=== PATIENT | female | born 1995 | race Caucasian/White ===

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

== ENCOUNTER 2017-02-03 11:35 | Emergency (ER) | payer OTHER ==
[2017-02-03 12:28] LABS: % IMMATURE GRANULYOCYTES 0.4 % (0.0-1.1); ABSOLUTE IMMATURE GRANULOCYTES 0.04 10^3/uL (0.00-0.10); ADD DIFF? NO; ADD MORPH? NO; ADD SCAN? NO; ATYPICAL LYMPHOCYTE FLAG 0 (0-99); FRAGMENT RBC FLAG 0 (0-99); HEMATOCRIT 41.1 % (38.0-47.0); HEMOGLOBIN 14.4 g/dL (12.6-16.3); LEFT SHIFT FLG 30 (0-99); LIPEMIA HEMOLYSIS FLAG 90 (0-99); MEAN CELL HEMOGLOBIN 30.3 pg (27.9-34.1); MEAN CELL VOLUME 86.3 fL (81.5-99.8); MEAN PLATELET VOLUME 10.2 fL (8.7-11.7); PLATELET CLUMPS FLAG 0 (0-99); PLATELET COUNT 193 10^3/uL (150-400); RED BLOOD CELL COUNT 4.76 10^6/uL (4.18-5.33); RED CELL DISTRIBUTION WIDTH 12.5 % (11.5-15.2)
[2017-02-03] MEDS ORDERED: NS 1,000 ML IV ONE (12:28)
--- NOTE | 2017-02-03 12:28 | EDPHY ---
H & P Stated Complaint: abdominal pain radiating to bilater low back Time Seen by Provider: 02/03/17 12:10 HPI/ROS: CHIEF COMPLAINT: Abdominal pain, back pain x4 days HISTORY OF PRESENT ILLNESS: 21-year-old immunocompetent female no history of abdominal surgeries complaining of 4 days of nausea, vomiting, diarrhea, lower abdominal pain, fever, chills, myalgias, with development of right flank pain in the past 24 hours . normal urinary habits . Seen at [facility] yesterday. No URI symptoms. No cough. No sore throat. No otalgia. No chest pain or dyspnea.no melena or hematochezia. No untreated water sources. No international travel. REVIEW OF SYSTEMS: A ten point review of systems was performed and is negative with the exception of the items mentioned in the HPI PAST MEDICAL & SURGICAL HISTORY: No history of abdominal surgeries. SOCIAL HISTORY: Student nonsmoker PHYSICAL EXAM (Prior to examination, patient consented to physical exam, hands were washed and my usual and customary physical exam procedures followed) 1) GENERAL: Well-developed, well-nourished, alert and oriented. Appears to be in no acute distress. 2) HEAD: Normocephalic, atraumatic 3) HEENT: Pupils equal, round, reactive to light bilaterally. Sclera anicteric. Nasopharynx, oropharynx, clear, no lesions. Dry mucous membranes no tonsillar enlargement or exudate 4) NECK: Full range of motion, no meningeal signs. 5) LUNGS: Clear auscultation bilaterally, no wheezes, no rhonchi, no retractions. 6) HEART: Regular rate and rhythm, no murmur, no heave, no gallop. 7) ABDOMEN: No guarding, tender to palpation bilateral lower quadrants, negative Soni's, negative peritoneal sign, 8) MUSCULOSKELETAL: Moving all extremities, no focal areas of tenderness, no obvious trauma. No peripheral edema or discoloration. 9) BACK: No CVA tenderness, no midline vertebral tenderness, no fluctuance, no step-off, no obvious trauma, no visual or palpable abnormality. 10) SKIN: No rash, no petechiae. 11) Psychiatric: Patient is oriented X 3, there is no agitation. DIFFERENTIAL DIAGNOSIS: My differential diagnosis includes, but is not limited to, acute appendicitis, acute pyelonephritis, acute cholecystitis, bowel obstruction, acute pancreatitis, ovarian torsion, ectopic , gastritis and urinary tract infection. The patient understands that this diagnosis is provisional and can never be 100% accurate. This is a partial list of diagnoses considered. These considerations are based on history, physical exam, past history and reassessment. - Personal History LMP (Females 10-55): Over 28 Days Ago Current Tetanus Diphtheria and Acellular Pertussis (TDAP): Yes Tetanus Vaccine Date: <10 years - Medical/Surgical History Hx Asthma: No Hx Chronic Respiratory Disease: No Hx Diabetes: No Hx Cardiac Disease: No Hx Renal Disease: No Hx Cirrhosis: No Hx Alcoholism: No Hx HIV/AIDS: No Hx Splenectomy or Spleen Trauma: No Other PMH: denies - Social History Smoking Status: Never smoked Constitutional: Initial Vital Signs Temperature (C) 36.5 C 02/03/17 11:41 Heart Rate 119 H 02/03/17 11:41 Respiratory Rate 16 02/03/17 11:41 Blood Pressure 116/84 H 02/03/17 11:41 O2 Sat (%) 95 02/03/17 11:41 O2 Delivery Mode Room Air Allergies/Adverse Reactions: Penicillins Allergy (Severe, Verified 06/22/16 20:26) Anaphylaxis Home Medications: Medication Instructions Recorded Control 02/03/17 Ondansetron Odt [Zofran Odt] 4 mg PO Q4PRN PRN #10 tab 02/03/17 Medical Decision Making - Diagnostics Imaging Results: Imaging Impressions Abdomen Ultrasound 02/03/17 12:25 Impression: Nonvisualization of the appendix with no secondary evidence of appendicitis. Findings discussed with Saundra Urias 02/03/2017 at 13:37. Pelvic/Renal Ultrasound 02/03/17 12:25 Impression: Normal pelvic ultrasound. Findings discussed with Saundra Urias 02/03/2017 at 13:37. Images reviewed myself ED Course/Re-evaluation: 2:10 p.m..: Re-evaluation, discussed her ultrasound results showing normal ovarian flow, nonvisualized appendix. I re-examined her and she has no guarding no rebound, no McBurney's point pain. States that she is feeling improvement after IV hydration. She is hungry. Discussed options with the patient. Discussed her urinalysis showing multiple epithelial cells, doubt cystitis or pyelonephritis. The patient has spoken with her mother via telephone. At this time she has been informed that acute appendicitis is not fully ruled out however given her current clinical presentation I think that this is less than likely. Discussed option of CT imaging now or recheck in 12 hours. She prefers recheck in 12 hours. I believe her to have decision-making capacity.Care of patient under supervision of secondary supervising physician Dr Savage . - Data Points Laboratory Results: Laboratory Results 02/03/17 12:15 02/03/17 12:15 02/03/17 02/03/17 02/03/17 12:35 12:15 12:15 WBC RBC Hgb Hct MCV MCH MCHC RDW Plt Count MPV Neut % (Auto) Lymph % (Auto) [place] % (Auto) Eos % (Auto) Baso % (Auto) Nucleat RBC Rel Count Absolute Neuts (auto) Absolute Lymphs (auto) Absolute Monos (auto) Absolute Eos (auto) Absolute Basos (auto) Absolute Nucleated RBC Immature Gran % Immature Gran # Sodium 139 mEq/L mEq/L (134-144) Potassium 4.0 mEq/L mEq/L (3.5-5.2) Chloride 103 mEq/L mEq/L (97-110) Carbon Dioxide 23 mEq/l mEq/l (22-31) Anion Gap 13 mEq/L mEq/L (8-16) BUN 9 mg/dL mg/dL (7-23) Creatinine 0.8 mg/dL mg/dL (0.6-1.0) Estimated GFR > 60 Glucose 95 mg/dL mg/dL (70-100) Calcium 9.2 mg/dL mg/dL (8.5-10.4) Total Bilirubin 0.4 mg/dL mg/dL (0.1-1.4) Conjugated Bilirubin 0.1 mg/dL mg/dL (0.0-0.5) Unconjugated Bilirubin 0.3 mg/dL mg/dL (0.0-1.1) AST 22 IU/L IU/L (14-46) ALT 25 IU/L IU/L (9-52) Alkaline Phosphatase 70 IU/L IU/L (38-126) Total Protein 6.7 g/dL g/dL (6.3-8.2) Albumin 3.3 g/dL L g/dL (3.5-5.0) Lipase 46 IU/L IU/L (23-300) Beta HCG, Qual NEGATIVE Urine Color JAIME Urine Appearance HAZY Urine pH 5.0 (5.0-7.5) Ur Specific [place] 1.030 (1.002-1.030) Urine Protein 1+ H (NEGATIVE) Urine Ketones 2+ H (NEGATIVE) Urine Blood NEGATIVE (NEGATIVE) Urine Nitrate NEGATIVE (NEGATIVE) Urine Bilirubin NEGATIVE (NEGATIVE) Urine Urobilinogen NEGATIVE EU EU (0.2-1.0) Ur Leukocyte Esterase NEGATIVE (NEGATIVE) Urine RBC 1-3 /hpf /hpf (0-3) Urine WBC 15-25 /hpf H /hpf (0-3) Ur Epithelial Cells 3+ /lpf H /lpf (NONE-1+) Urine Bacteria 1+ /hpf H /hpf (NONE SEEN) Urine Mucus 2+ /lpf H /lpf (NONE-1+) Urine Glucose NEGATIVE (NEGATIVE) 02/03/17 12:15 WBC 11.04 10^3/uL H 10^3/uL (3.80-9.50) RBC 4.76 10^6/uL 10^6/uL (4.18-5.33) Hgb 14.4 g/dL g/dL (12.6-16.3) Hct 41.1 % % (38.0-47.0) MCV 86.3 fL fL (81.5-99.8) MCH 30.3 pg pg (27.9-34.1) MCHC 35.0 g/dL g/dL (32.4-36.7) RDW 12.5 % % (11.5-15.2) Plt Count 193 10^3/uL 10^3/uL (150-400) MPV 10.2 fL fL (8.7-11.7) Neut % (Auto) 82.3 % H % (39.3-74.2) Lymph % (Auto) 10.5 % L % (15.0-45.0) [place] % (Auto) 6.4 % % (4.5-13.0) Eos % (Auto) 0.1 % L % (0.6-7.6) Baso % (Auto) 0.3 % % (0.3-1.7) Nucleat RBC Rel Count 0.0 % % (0.0-0.2) Absolute Neuts (auto) 9.09 10^3/uL H 10^3/uL (1.70-6.50) Absolute Lymphs (auto) 1.16 10^3/uL 10^3/uL (1.00-3.00) Absolute Monos (auto) 0.71 10^3/uL 10^3/uL (0.30-0.80) Absolute Eos (auto) 0.01 10^3/uL L 10^3/uL (0.03-0.40) Absolute Basos (auto) 0.03 10^3/uL 10^3/uL (0.02-0.10) Absolute Nucleated RBC 0.00 10^3/uL 10^3/uL (0-0.01) Immature Gran % 0.4 % % (0.0-1.1) Immature Gran # 0.04 10^3/uL 10^3/uL (0.00-0.10) Sodium Potassium Chloride Carbon Dioxide Anion Gap BUN Creatinine Estimated GFR Glucose Calcium Total Bilirubin Conjugated Bilirubin Unconjugated Bilirubin AST ALT Alkaline Phosphatase Total Protein Albumin Lipase Beta HCG, Qual Urine Color Urine Appearance Urine pH Ur Specific [place] Urine Protein Urine Ketones Urine Blood Urine Nitrate Urine Bilirubin Urine Urobilinogen Ur Leukocyte Esterase Urine RBC Urine WBC Ur Epithelial Cells Urine Bacteria Urine Mucus Urine Glucose Medications Given: Discontinued Medications Sodium Chloride (Ns) 1,000 mls @ 0 mls/hr IV ONCE ONE PRN Reason: Wide Open Stop: 02/03/17 12:29 Last Admin: 02/03/17 13:27 Dose: 1,000 mls Departure - Departure Disposition: Home, Routine, Self-Care Clinical Impression: Volume depletion Abdominal pain Qualifiers: Abdominal location: right lower quadrant Qualified Code(s): R10.31 - Right lower quadrant pain Nausea & vomiting Qualifiers: Vomiting type: unspecified Vomiting Intractability: non-intractable Qualified Code(s): R11.2 - Nausea with vomiting, unspecified Condition: Good Instructions: Acute Nausea and Vomiting (ED), Acute Abdominal Pain (ED) Additional Instructions: Seek immediate medical attention if you develop new or worsening symptoms, if you develop fevers, chills, inability to tolerate oral intake or any other symptoms that concerns you. Referrals: Return, to the ER in 12 hours for recheck [Other] - 02/04/17 2:15 am Stand Alone Forms: School Excuse Prescriptions: Ondansetron Odt [Zofran Odt] 4 mg PO Q4PRN PRN #10 tab PRN Reason: Nausea
[2017-02-03 12:30] LABS: COLOR AMBER; LEUKOCYTE ESTERASE,URINE NEGATIVE (NEGATIVE); NITRITE,URINE NEGATIVE (NEGATIVE)
[2017-02-03 12:34] LABS: BACTERIA 1+ /hpf (NONE SEEN); MUCUS 2+ /lpf (NONE-1+); WBC,URINE 15-25 /hpf (0-3)
[2017-02-03 12:43] LABS: ALANINE AMINOTRANSFERASE 25 IU/L (9-52); ALBUMIN 3.3 g/dL (3.5-5.0); ALKALINE PHOSPHATASE 70 IU/L (38-126); ANION GAP 13 mEq/L (8-16); ASPARTATE AMINOTRANSFERASE 22 IU/L (14-46); BILIRUBIN,TOTAL 0.4 mg/dL (0.1-1.4); BILIRUBIN-CONJUGATED 0.1 mg/dL (0.0-0.5); BILIRUBIN-UNCONJUGATED 0.3 mg/dL (0.0-1.1); CALCIUM 9.2 mg/dL (8.5-10.4); CARBON DIOXIDE 23 mEq/l (22-31); CHLORIDE 103 mEq/L (97-110); CREATININE 0.8 mg/dL (0.6-1.0); GLOMERULAR FILTRATION RATE > 60; GLUCOSE 95 mg/dL (70-100); SODIUM 139 mEq/L (134-144); TOTAL PROTEIN 6.7 g/dL (6.3-8.2)
[2017-02-03 14:23] VITALS: BP 123/88; PULSE 91; RESP 18; TEMP 98.2; O2SAT 97
== END 2017-02-03 14:15 | disposition home or self-care (01) ==
PROC: 3E0337Z Introduction of Electrolytic and Water Balance Substance into Peripheral Vein, Percutaneous Approach (ICD-10-PCS; principal; 2017-02-03)
DX: E86.9 Volume depletion, unspecified (principal); R10.31 Right lower quadrant pain